=== PATIENT | male | born 1995 | race African-American/Black ===

== ENCOUNTER 2017-02-16 13:20 | Emergency (ER) | payer SELFPAY ==
[2017-02-16] MEDS ORDERED: Ibuprofen 800 MG TAB ONE (13:46)
== END 2017-02-16 14:25 | disposition home or self-care (01) ==
LOC: BURERS 13:20
DX: S39.012A Strain of muscle, fascia and tendon of lower back, initial encounter (principal); S29.012A Strain of muscle and tendon of back wall of thorax, initial encounter; V49.9XXA Car occupant (driver) (passenger) injured in unspecified traffic accident, initial encounter
CPT/HCPCS: 99283

== ENCOUNTER 2017-10-23 14:43 | Emergency (ER) | payer SELFPAY ==
--- NOTE | 2017-10-23 17:16 | RAD ---
RIGHT ANKLE THREE VIEWS 10/23/17 No fracture, dislocation or acute bony change was seen. The articular surfaces are smooth. A few flec ks of bone seen beneath the medial malleolus are smooth and rounded and are probably from an old inju ry. IMPRESSION: No acute findings. POS: HOME
== END 2017-10-23 15:18 | disposition home or self-care (01) ==
LOC: BURERS 14:43
DX: S90.01XA Contusion of right ankle, initial encounter (principal); W22.8XXA Striking against or struck by other objects, initial encounter

== ENCOUNTER 2018-05-10 23:37 | Emergency (ER) | payer SELFPAY ==
[2018-05-10] MEDS ORDERED: Fluorescein Opthalmic Strip ONE (23:54)
[2018-05-11] MEDS ORDERED: Gentamicin Ophth Soln 0.3% 5 ml Bottle ONE
[2018-05-11] MEDS ORDERED: Erythromycin Base 0.5% Ophth Oint 3.5 gm Tube ONE
[2018-05-11] MEDS ORDERED: Ibuprofen 800 MG TAB ONE (00:09)
== END 2018-05-11 00:16 | disposition home or self-care (01) ==
LOC: BURERS 23:37
DX: S05.02XA Injury of conjunctiva and corneal abrasion without foreign body, left eye, initial encounter (principal); S05.01XA Injury of conjunctiva and corneal abrasion without foreign body, right eye, initial encounter; Y33.XXXA Other specified events, undetermined intent, initial encounter
CPT/HCPCS: 99283

== ENCOUNTER 2018-05-11 08:26 | Emergency (ER) | payer SELFPAY | END 2018-05-11 08:58 | disposition home or self-care (01) | LOC: BURERS 08:26 | DX: H16.133 Photokeratitis, bilateral (principal) | CPT/HCPCS: 99283 ==

== ENCOUNTER 2019-06-11 04:15 | Emergency (ER) | payer SELFPAY | END 2019-06-11 04:41 | disposition home or self-care (01) | LOC: BURERS 04:15 | DX: K04.7 Periapical abscess without sinus (principal) | CPT/HCPCS: 99282 ==

== ENCOUNTER 2021-01-04 06:57 | Emergency (ER) | payer SELFPAY ==
[2021-01-04] MEDS ORDERED: Doxycycline 100 MG CAP ONE (07:30)
== END 2021-01-04 07:40 | disposition home or self-care (01) ==
LOC: BURERS 06:57
DX: R59.0 Localized enlarged lymph nodes (principal)
CPT/HCPCS: 99282

== ENCOUNTER 2021-05-26 05:26 | Emergency (ER) | payer SELFPAY ==
[2021-05-26 05:56] LABS: Bilirubin Small (Negative); Blood, Urine Moderate (Negative); Clarity Clear (Clear); Glucose, Urine (Dipstick) Negative (Negative); Ketone, Urine Negative (Negative); Leukocyte Large (Negative); Nitrite Negative (Negative); Protein, Urine (Dipstick) 30 mg/dL (Neg-Trace); pH, Urine 6.5 (5.0-9.0)
[2021-05-26 06:17] LABS: Bacteria/HPF Rare-Few HPF (None Seen); RBC/HPF 0-3 HPF (0-3); Squamous Epithelial 0-3 HPF (0-3); WBC/HPF Greater Than 50 HPF (0-3)
[2021-05-26] MEDS ORDERED: Azithromycin 250 MG TAB ONE ×3 (07:05→07:16)
[2021-05-26] MEDS ORDERED: cefTRIAXone\\ROCEPHIN 500 MG VIAL ONE (07:06)
== END 2021-05-26 07:20 | disposition home or self-care (01) ==
LOC: BURERS 05:26
DX: N34.2 Other urethritis (principal)
CPT/HCPCS: 81003; 81015; 87491; 87591; 96372; 99283; J0696

== ENCOUNTER 2022-02-13 02:59 | Emergency (ER) | payer SELFPAY ==
[2022-02-13] MEDS ORDERED: AMOXicillin 250 MG CAP ONE (03:15)
[2022-02-13] MEDS ORDERED: Dexamethasone 4 MG TAB ONE (03:15)
== END 2022-02-13 03:20 | disposition home or self-care (01) ==
LOC: BURERS 02:59
DX: J02.9 Acute pharyngitis, unspecified (principal); J06.9 Acute upper respiratory infection, unspecified
CPT/HCPCS: 99283; J8540